=== PATIENT | female | born 1980 | race Caucasian/White ===

== ENCOUNTER → 2016-12-30 | Outpatient (CLI) | payer OTHER ==
[2016-12-30 15:04] LABS: CH 33.1; CHCM 32.9; HCT 44.7 % (34.0-46.0); HDW 2.46; HGB 14.5 gm/dL (11.4-16.0); MCH 32.7 pg (25.0-35.0); MCHC 32.3 g/dL (31.0-37.0); MCV 101.2 fL (80.0-100.0); Macrocytosis Slight; Mean Platelet Volume 9.7; RBC 4.42 m/uL (3.80-5.40); WBC 7.9 k/uL (3.8-10.6)
[2016-12-30 15:18] LABS: ALT 33 U/L (9-52); AST 17 U/L (14-36); Alkaline Phosphatase 58 U/L (38-126); Anion Gap 10 mmol/L; Blood Urea Nitrogen 9 mg/dL (7-17); Calcium 8.8 mg/dL (8.4-10.2); Carbon Dioxide 21 mmol/L (22-30); Chloride 109 mmol/L (98-107); Cholesterol 124 mg/dL (<200); Glucose 119 mg/dL (74-99); HDL Cholesterol 46 mg/dL (40-60); Non-African American GFR(MDRD) >60 (>60 ml/min/1.73 sqM); Potassium 3.8 mmol/L (3.5-5.1); Sodium 140 mmol/L (137-145); Total Bilirubin 0.6 mg/dL (0.2-1.3)
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
--- NOTE | 2016-12-30 15:45 | XR ---
EXAM TYPE: LUMBAR SPINE X RAY SERIES COMPARISON: NONE HISTORY: Low back pain TECHNIQUE: 4 views are submitted. FINDINGS: Alignment is anatomic. The pedicles are intact. The transverse processes are intact. There is no s pondylolysis or spondylolisthesis. Minimal hypertrophic change at L3. IMPRESSION: 1. No acute process.
[2016-12-30 16:08] LABS: Appearance,Urine Clear (Clear); Bacteria,Urine Many /hpf; Bilirubin,Urine Negative (Negative); Glucose,Urine (UA) Negative (Negative); Ketones,Urine Negative (Negative); Leukocyte Esterase,Urine Moderate (Negative); Mucus,Urine Rare /hpf; Nitrite,Urine Negative (Negative); PH, Urine 5.5 (5.0-8.0); Particle Count 5417; Protein,Urine Negative (Negative); RBC,Urine 1 /hpf (0-5); Specific Gravity,Urine 1.012 (1.001-1.035); Squamous Epithelial Cell,Urine 6 /hpf (0-4); UA Billing (MACRO vs. MICRO) MICRO; Urobilinogen,Urine <2.0 mg/dL (<2.0); WBC,Urine 19 /hpf (0-5)
== END | disposition home or self-care (01) ==
LOC: LABWHC1 14:40
PROVIDERS: ATTEND Internal Medicine
DX: Z00.00 Encounter for general adult medical examination without abnormal findings (principal); J44.9 Chronic obstructive pulmonary disease, unspecified; M79.7 Fibromyalgia; E66.1 Drug-induced obesity; N39.0 Urinary tract infection, site not specified; M54.5 Low back pain
CPT/HCPCS: 36415; 71020; 72110; 80053; 80061; 81001; 84439; 84443; 85027

== ENCOUNTER 2017-01-20 16:51 | Emergency (ER) | payer OTHER ==
[2017-01-20 17:07] VITALS: BP 136/70; PULSE 70; RESP 16; TEMP 98.6
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
== END 2017-01-20 17:45 | disposition home or self-care (01) ==
LOC: EC 16:51
DX: K08.89 Other specified disorders of teeth and supporting structures (principal); F17.200 Nicotine dependence, unspecified, uncomplicated; Z79.899 Other long term (current) drug therapy; Z88.0 Allergy status to penicillin; Z98.818 Other dental procedure status
CPT/HCPCS: 99282

== ENCOUNTER 2017-01-23 13:07 | Emergency (ER) | payer OTHER ==
[2017-01-23 13:23] VITALS: BP 140/61; PULSE 80; RESP 20; TEMP 97.9
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
== END 2017-01-23 13:42 | disposition home or self-care (01) ==
LOC: EC 13:07
DX: K13.79 Other lesions of oral mucosa (principal); K08.409 Partial loss of teeth, unspecified cause, unspecified class; Z87.891 Personal history of nicotine dependence; Z88.0 Allergy status to penicillin; Z98.890 Other specified postprocedural states
CPT/HCPCS: 99282

== ENCOUNTER 2017-06-25 19:36 | Emergency (ER) | payer OTHER ==
[2017-06-25] MEDS ORDERED: IBUPROFEN 600 MG TAB PO STA (19:49)
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
--- NOTE | 2017-06-25 20:52 | XR ---
EXAMINATION TYPE: XR ankle complete RT DATE OF EXAM: 06/25/2017 COMPARISON: NONE HISTORY: Pain TECHNIQUE: 3 views FINDINGS: I see no fracture nor dislocation. Ankle mortise is anatomic. Joint spaces are normal. IMPRESSION: Negative right ankle exam.
[2017-06-25] MEDS ORDERED: traMADol 50 MG STARTER PACK 3 TAB BTL PO STA (21:09)
[2017-06-25 21:24] VITALS: BP 126/78; PULSE 90; RESP 20; TEMP 98.7
== END 2017-06-25 21:00 | disposition home or self-care (01) ==
LOC: EC 19:36
DX: S93.401A Sprain of unspecified ligament of right ankle, initial encounter (principal); Z88.0 Allergy status to penicillin; Z87.891 Personal history of nicotine dependence; W00.0XXA Fall on same level due to ice and snow, initial encounter
CPT/HCPCS: 99283

== ENCOUNTER 2017-07-07 16:58 | Emergency (ER) | payer OTHER ==
[2017-07-07 17:09] VITALS: TEMP 98.3
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
[2017-07-07 18:27] VITALS: BP 128/70; PULSE 70; RESP 16
== END 2017-07-07 18:20 | disposition home or self-care (01) ==
LOC: EC 16:58
DX: H92.09 Otalgia, unspecified ear (principal); R59.0 Localized enlarged lymph nodes; H93.8X2 Other specified disorders of left ear; F17.200 Nicotine dependence, unspecified, uncomplicated; Z88.0 Allergy status to penicillin
CPT/HCPCS: 99283

== ENCOUNTER 2017-09-29 19:04 | Emergency (ER) | payer OTHER ==
[2017-09-29 19:15] VITALS: BP 135/78; PULSE 108; RESP 18; TEMP 98
--- NOTE | 2017-09-29 20:44 | XR ---
EXAMINATION TYPE: XR hand complete RT DATE OF EXAM: 09/29/2017 COMPARISON: NONE HISTORY: Hand pain and swelling TECHNIQUE: 3 views FINDINGS: I see no fracture nor dislocation. Metacarpals are intact. There are no erosions. IMPRESSION: Negative right hand exam.
--- NOTE | 2017-09-29 20:45 | XR ---
EXAMINATION TYPE: XR forearm RT DATE OF EXAM: 09/29/2017 COMPARISON: NONE HISTORY: Pain and swelling TECHNIQUE: 2 views FINDINGS: Radius and ulna appear intact. There is some soft tissue swelling on the posterior ulna. Wr ist joint and elbow joint appear intact. IMPRESSION: Posterior soft tissue swelling. No fracture.
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
--- NOTE | 2017-09-29 21:40 | US ---
EXAMINATION TYPE: US venous doppler duplex UE RT DATE OF EXAM: 09/29/2017 COMPARISON: NONE CLINICAL HISTORY: Pain. new job that involves heavy lifting and patient started to notice arm pain th at increased to swelling and limited mobility, no h/o dvt SIDE PERFORMED: Right Right Arm: Appears negative for DVT IMPRESSION: . No evidence of deep venous thrombosis in the right arm.
[2017-09-29] MEDS ORDERED: Acetaminophen-Codeine 300-30mg TAB PO STA (21:41)
== END 2017-09-29 21:59 | disposition home or self-care (01) ==
LOC: EC 19:04
DX: M79.89 Other specified soft tissue disorders (principal); M79.601 Pain in right arm; M25.532 Pain in left wrist; F17.200 Nicotine dependence, unspecified, uncomplicated; Z88.0 Allergy status to penicillin; X50.3XXA Overexertion from repetitive movements, initial encounter; Y92.69 Other specified industrial and construction area as the place of occurrence of the external cause
CPT/HCPCS: 99284

== ENCOUNTER 2017-11-13 13:25 | Emergency (ER) | payer OTHER ==
[2017-11-13 13:45] VITALS: RESP 16
[2017-11-13] MEDS ORDERED: ONDANSETRON 4 MG/2 ML VIAL IVP STA (15:06)
[2017-11-13] MEDS ORDERED: SODIUM CHLORIDE 0.9% 1,000 ML IV ONE (15:06)
[2017-11-13] MEDS ORDERED: KETOROLAC 30 MG/ML 1 ML VIAL IVP STA (15:06)
[2017-11-13] MEDS ORDERED: MORPHINE SULFATE 2 MG/ML SYRINGE IVP STA (15:07)
[2017-11-13] MEDS ORDERED: ACETAMINOPHEN TAB 500 MG TAB PO STA (15:08)
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
[2017-11-13 15:13] LABS: Basophils % (A) 0 %; Eosinophils # (A) 0.1 k/uL (0-0.7); Eosinophils % (A) 1 %; HCT 45.4 % (34.0-46.0); HGB 15.1 gm/dL (11.4-16.0); Lymphocytes # (A) 1.1 k/uL (1.0-4.8); Lymphocytes % (A) 14 %; MCH 30.8 pg (25.0-35.0); MCHC 33.2 g/dL (31.0-37.0); MCV 92.7 fL (80.0-100.0); Mean Platelet Volume 8.8; Monocytes # (A) 0.4 k/uL (0-1.0); Monocytes % (A) 5 %; Neutrophils # (A) 6.4 k/uL (1.3-7.7); Neutrophils % (A) 79 %; Platelet Count 113 k/uL (150-450); RDW 13.5 % (11.5-15.5); WBC 8.1 k/uL (3.8-10.6)
[2017-11-13] MEDS ORDERED: SODIUM CHLORIDE 0.9% 1,000 ML IV SCH (15:15)
[2017-11-13 15:26] LABS: Appearance,Urine Cloudy (Clear); Bacteria,Urine Occasional /hpf; Bilirubin,Urine Negative (Negative); Blood,Urine Moderate (Negative); Color,Urine Yellow; Glucose,Urine (UA) Negative (Negative); Ketones,Urine Negative (Negative); Leukocyte Esterase,Urine Large (Negative); Mucus,Urine Rare /hpf; Nitrite,Urine Negative (Negative); PH, Urine 7.5 (5.0-8.0); Protein,Urine 1+ (Negative); RBC,Urine 85 /hpf (0-5); Specific Gravity,Urine 1.013 (1.001-1.035); Squamous Epithelial Cell,Urine 12 /hpf (0-4); Urobilinogen,Urine <2.0 mg/dL (<2.0); WBC,Urine 120 /hpf (0-5)
[2017-11-13 15:30] LABS: ALT 31 U/L (9-52); AST 14 U/L (14-36); Albumin 3.6 g/dL (3.5-5.0); Alkaline Phosphatase 66 U/L (38-126); Amylase 35 U/L (30-110); Anion Gap 11 mmol/L; Blood Urea Nitrogen 6 mg/dL (7-17); Calcium 8.8 mg/dL (8.4-10.2); Carbon Dioxide 24 mmol/L (22-30); Chloride 105 mmol/L (98-107); Glucose 96 mg/dL (74-99); Lipase 66 U/L (23-300); Potassium 3.7 mmol/L (3.5-5.1); Sodium 140 mmol/L (137-145); Total Bilirubin 1.4 mg/dL (0.2-1.3)
[2017-11-13] MEDS ORDERED: cefTRIAXone IN SWFI 2,000 MG/20 ML SYRINGE IVP STA (15:44)
--- NOTE | 2017-11-13 15:54 | XR ---
EXAMINATION TYPE: XR KUB DATE OF EXAM: 11/13/2017 3:47 PM CLINICAL HISTORY: Left flank pain and abdominal pain TECHNIQUE: Single upright image of the abdomen is obtained. COMPARISON: 10/08/2009 FINDINGS: Few air-fluid levels are seen within the right lower quadrant. No dilated small bowel. Prom inent loop of air-filled large bowel reside within the right mid abdomen. Calcific densities are like ly external to the patient or within subcutaneous tissues overlying the hepatic contour, some of whic h were seen on the prior of 2009. No pneumoperitoneum. Liver is elongated extending to the iliac marin t. Lung bases are well aerated. Osseous structures are grossly intact. IMPRESSION: Few right lower quadrant air-fluid levels are seen within nondilated bowel. Correlate for point tenderness to exclude sentinel loop, overall however these are nonspecific.
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
[2017-11-13 16:59] VITALS: BP 99/51; PULSE 90; TEMP 100.5
== END 2017-11-13 17:26 | disposition home or self-care (01) ==
LOC: EC 13:25
DX: N10 Acute pyelonephritis (principal); M79.7 Fibromyalgia; F17.200 Nicotine dependence, unspecified, uncomplicated; Z79.899 Other long term (current) drug therapy; Z88.0 Allergy status to penicillin
CPT/HCPCS: 36415; 80053; 82150; 83605; 83690; 85025; 81001; 87040; 87086; 87077; 87186; 74018; 74176; 99285; 96374; 96375 ×3; 96361 ×2; J2405; J0696; J1885; J2270

== ENCOUNTER 2018-01-08 18:59 | Emergency (ER) | payer OTHER ==
[2018-01-08 19:04] VITALS: BP 110/71; PULSE 96; RESP 18; TEMP 98.1
== END 2018-01-08 20:40 | disposition left against medical advice (07) ==
LOC: EC 18:59
DX: R05 Cough (principal); T15.92XA Foreign body on external eye, part unspecified, left eye, initial encounter; Z53.21 Procedure and treatment not carried out due to patient leaving prior to being seen by health care provider; X58.XXXA Exposure to other specified factors, initial encounter
CPT/HCPCS: 99499

== ENCOUNTER 2021-02-01 00:59 | Observation (INO) | payer OTHER ==
[2021-02-01] MEDS ORDERED: ONDANSETRON 4 MG/2 ML VIAL IVP STA (03:10)
[2021-02-01] MEDS ORDERED: SODIUM CHLORIDE 0.9% 1,000 ML IV STA (03:10)
[2021-02-01] MEDS ORDERED: HYDROmorphone 1 MG/ML 1 ML SYRINGE IVP STA (03:11)
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
[2021-02-01] MEDS ORDERED: ONDANSETRON 4 MG/2 ML VIAL IVP PRN (04:30)
[2021-02-01] MEDS ORDERED: MORPHINE SULFATE 4 MG/ML SYRINGE IV PRN (04:30)
[2021-02-01] MEDS ORDERED: LORazepam 2 MG/ML INJ IV PRN (04:30)
[2021-02-01] MEDS ORDERED: NALOXONE 0.4 MG/ML 1 ML VIAL IV PRN (04:30)
[2021-02-01 04:43] LABS: Basophils % (A) 1 %; Eosinophils # (A) 0.1 k/uL (0-0.7); Eosinophils % (A) 3 %; HCT 29.2 % (34.0-46.0); HGB 9.5 gm/dL (11.4-16.0); Lymphocytes # (A) 1.3 k/uL (1.0-4.8); Lymphocytes % (A) 25 %; MCH 30.3 pg (25.0-35.0); MCHC 32.6 g/dL (31.0-37.0); MCV 92.9 fL (80.0-100.0); Mean Platelet Volume 8.5; Monocytes # (A) 0.3 k/uL (0-1.0); Monocytes % (A) 5 %; Neutrophils # (A) 3.4 k/uL (1.3-7.7); Neutrophils % (A) 65 %; Platelet Count 206 k/uL (150-450); RBC 3.14 m/uL (3.80-5.40); RDW 14.8 % (11.5-15.5); WBC 5.2 k/uL (3.8-10.6)
[2021-02-01 04:51] LABS: ALT 63 U/L (4-34); AST 45 U/L (14-36); African American GFR (CKD) >90 (>60 ml/min/1.73 sqM); Albumin 3.2 g/dL (3.5-5.0); Alkaline Phosphatase 188 U/L (38-126); Anion Gap 7 mmol/L; Blood Urea Nitrogen 18 mg/dL (7-17); Carbon Dioxide 26 mmol/L (22-30); Chloride 102 mmol/L (98-107); Creatine Kinase 31 U/L (30-135); Glucose 98 mg/dL (74-99); Magnesium 2.1 mg/dL (1.6-2.3); Non-African American GFR(CKD) >90 (>60 ml/min/1.73 sqM); Phosphorus 4.7 mg/dL (2.5-4.5); Potassium 4.8 mmol/L (3.5-5.1); Sodium 135 mmol/L (137-145); Total Bilirubin 0.6 mg/dL (0.2-1.3); Total Protein 6.3 g/dL (6.3-8.2)
[2021-02-01 04:59] LABS: INR 0.9 (<1.2); Prothrombin Time 10.1 sec (9.0-12.0)
[2021-02-01] MEDS: SODIUM CHLORIDE 0.9% 1,000 ML IV SCH ×3 (05:00→19:49)
[2021-02-01 05:03] LABS: Partial Thromboplastin Time 21.6 sec (22.0-30.0)
[2021-02-01] MEDS: HYDROmorphone 1 MG/ML 1 ML SYRINGE IVP PRN ×4 (09:38→22:09)
[2021-02-01 10:07] LABS: Amorphous Sediment,Urine Occasional /hpf; Appearance,Urine Cloudy (Clear); Bacteria,Urine Rare /hpf; Bilirubin,Urine Negative (Negative); Blood,Urine Negative (Negative); Color,Urine Light Yellow; Glucose,Urine (UA) Negative (Negative); Ketones,Urine Negative (Negative); Leukocyte Esterase,Urine Negative (Negative); Nitrite,Urine Negative (Negative); PH, Urine 7.5 (5.0-8.0); Protein,Urine Negative (Negative); RBC,Urine 1 /hpf (0-5); Specific Gravity,Urine 1.012 (1.001-1.035); Squamous Epithelial Cell,Urine 4 /hpf (0-4); Urobilinogen,Urine <2.0 mg/dL (<2.0); WBC,Urine 2 /hpf (0-5)
[2021-02-01] MEDS ORDERED: HYDROmorphone 4 MG TABLET PO PRN (14:39)
[2021-02-01] MEDS ORDERED: IBUPROFEN 600 MG TAB PO PRN (14:39)
[2021-02-01] MEDS ORDERED: MELATONIN 3 MG TABLET PO PRN (14:39)
[2021-02-01] MEDS ORDERED: ACETAMINOPHEN TAB 500 MG TAB PO PRN (14:39)
[2021-02-01] MEDS: GABAPENTIN 100 MG CAP PO SCH ×2 (15:50→22:13)
[2021-02-01] MEDS: METHADONE 10 MG TAB PO SCH ×2 (15:50→23:35)
[2021-02-01] MEDS: ENOXAPARIN 30 MG/0.3 ML SYRINGE SQ SCH ×2 (15:51→22:09)
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
[2021-02-01] MEDS: BACITRACIN ZINC 500 UNIT/GM OINT 28.4 GM TUBE TOPICAL SCH (19:48)
[2021-02-01] MEDS: SULFAMETHOX-TMP 800-160MG 1 EACH TAB PO SCH (19:48)
[2021-02-01] MEDS: DOCUSATE 100 MG CAP PO SCH (19:48)
[2021-02-02 02:15] VITALS: RESP 18
[2021-02-02] MEDS: HYDROmorphone 1 MG/ML 1 ML SYRINGE IVP PRN (04:30)
[2021-02-02] MEDS: SODIUM CHLORIDE 0.9% 1,000 ML IV SCH ×2 (04:30→11:46)
[2021-02-02 07:02] LABS: ALT 59 U/L (4-34); AST 38 U/L (14-36); African American GFR (CKD) >90 (>60 ml/min/1.73 sqM); Albumin 2.9 g/dL (3.5-5.0); Alkaline Phosphatase 173 U/L (38-126); Anion Gap 7 mmol/L; Blood Urea Nitrogen 10 mg/dL (7-17); Calcium 8.8 mg/dL (8.4-10.2); Carbon Dioxide 24 mmol/L (22-30); Chloride 106 mmol/L (98-107); Glucose 103 mg/dL (74-99); Non-African American GFR(CKD) >90 (>60 ml/min/1.73 sqM); Potassium 4.3 mmol/L (3.5-5.1); Sodium 137 mmol/L (137-145); Total Bilirubin 0.6 mg/dL (0.2-1.3); Total Protein 5.9 g/dL (6.3-8.2)
[2021-02-02] MEDS: SULFAMETHOX-TMP 800-160MG 1 EACH TAB PO SCH (07:46)
[2021-02-02] MEDS: ENOXAPARIN 30 MG/0.3 ML SYRINGE SQ SCH (07:46)
[2021-02-02] MEDS: GABAPENTIN 100 MG CAP PO SCH (07:46)
[2021-02-02] MEDS: METHADONE 10 MG TAB PO SCH (07:47)
[2021-02-02] MEDS: DOCUSATE 100 MG CAP PO SCH (07:47)
[2021-02-02] MEDS: BACITRACIN ZINC 500 UNIT/GM OINT 28.4 GM TUBE TOPICAL SCH ×2 (07:48→10:48)
[2021-02-02 08:04] VITALS: BP 103/70; PULSE 112; TEMP 99
[2021-02-02 09:11] LABS: Basophils # (A) 0.03 X 10*3/uL (0.00-0.10); Basophils % (A) 0.6 %; Eosinophils # (A) 0.11 X 10*3/uL (0.04-0.35); Eosinophils % (A) 2.2 %; HCT 29.1 % (37.2-46.3); HGB 9.2 g/dL (12.0-15.0); Lymphocytes # (A) 1.32 X 10*3/uL (0.90-5.00); Lymphocytes % (A) 26.9 %; MCH 29.8 pg (27.0-32.0); MCHC 31.6 g/dL (32.0-37.0); MCV 94.2 fL (80.0-97.0); Mean Platelet Volume 11.2 fL (9.5-12.2); Monocytes # (A) 0.54 X 10*3/uL (0.20-1.00); Neutrophils # (A) 2.88 X 10*3/uL (1.80-7.70); Neutrophils % (A) 58.7 %; Platelet Count 212 X 10*3/uL (140-440); RBC 3.09 X 10*6/uL (4.10-5.20); RDW 15.3 % (11.5-14.5); WBC 4.91 X 10*3/uL (4.50-10.00)
[2021-02-02] MEDS ORDERED: HYDROmorphone 2 MG TAB PO PRN (10:42)
--- NOTE | 2021-02-02 14:10 | US ---
EXAMINATION TYPE: US venous doppler duplex LE DATE OF EXAM: 02/02/2021 1:05 PM COMPARISON: NONE CLINICAL HISTORY: leg swelling. SIDE PERFORMED: Bilateral TECHNIQUE: The lower extremity deep venous system is examined utilizing real time linear array sonog sarah with graded compression, doppler sonography and color-flow sonography. VESSELS IMAGED: Common Femoral Vein Deep Femoral Vein Greater Saphenous Vein * Femoral Vein Popliteal Vein Small Saphenous Vein * Proximal Calf Veins (* superficial vessels) There is normal flow, compressibility, vascular waveforms Right Leg: Negative for DVT Left Leg: Negative for DVT IMPRESSION: No evidence of deep venous thrombosis in the lower examination the level of the knee cent rally
--- NOTE | 2021-02-02 14:14 | US ---
EXAMINATION TYPE: US venous doppler duplex UE LT DATE OF EXAM: 02/02/2021 COMPARISON: NONE CLINICAL HISTORY: swelling . SIDE PERFORMED: Left Arm Grayscale, color doppler, spectral doppler imaging performed of the deep veins of the left upper extr emity. Visualized portion of the cephalic vein, ulnar veins, radial veins, brachial veins, subclavian vein, left internal jugular vein are unremarkable, axillary vein image not submitted. There is normal flow, compressibility and vascular waveforms. Thrombus seen in prox-mid basilic vein. There is normal flow, compressibility and vascular waveforms within the deep veins evaluated. Left Arm: Negative for DVT Superficial thrombus noted. Difficult due to patient mobility. IMPRESSION: Superficial venous thrombosis with no evident deep venous thrombosis.
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
== END 2021-02-02 15:16 | disposition home health service (06) ==
LOC: EC 00:59 → 6NMEDSUR 04:30
PROVIDERS: ADMIT Hospitalist; ATTEND Hospitalist
DX: M25.552 Pain in left hip (principal); G89.29 Other chronic pain; M54.5 Low back pain; R07.2 Precordial pain; L03.114 Cellulitis of left upper limb; I80.8 Phlebitis and thrombophlebitis of other sites; Z20.822 Contact with and (suspected) exposure to COVID-19; R74.8 Abnormal levels of other serum enzymes; F17.200 Nicotine dependence, unspecified, uncomplicated; G62.9 Polyneuropathy, unspecified; M79.7 Fibromyalgia; F32.9 Major depressive disorder, single episode, unspecified; F41.0 Panic disorder [episodic paroxysmal anxiety]; F41.8 Other specified anxiety disorders; Z79.899 Other long term (current) drug therapy; Z88.0 Allergy status to penicillin; Z90.721 Acquired absence of ovaries, unilateral; Z98.1 Arthrodesis status; Z87.828 Personal history of other (healed) physical injury and trauma; Z80.1 Family history of malignant neoplasm of trachea, bronchus and lung; Z82.49 Family history of ischemic heart disease and other diseases of the circulatory system
CPT/HCPCS: 99284; 96374; 96375; 96376 ×3; 96361 ×2; 36415; 93005; 97162; 83880; 80053 ×2; 82550; 83605; 83735; 84100; 84484; 85025 ×2; 85610; 85730; 81001; 87635; 93970; 93971; G0378 ×2; J2270; J2405; S0109 ×2; J1170 ×2